=== PATIENT | male | born 1990 | race Two or more races ===

== ENCOUNTER 2016-09-06 19:49 | Emergency (ER) | payer SELFPAY ==
[~2016-09-06] VITALS: Ht 185.4 cm; Wt 74.0 kg
[2016-09-06] MEDS ORDERED: ONDANSETRON 2MG/ML, 2ML ONE (21:11)
[2016-09-06] MEDS ORDERED: HYDROmorphone 1 MG/ML, 1ML ONE (21:11)
[2016-09-06 21:16] VITALS: BP 144/94
[2016-09-06 21:28] LABS: HEMOGLOBIN 13.1 g/dL (13.7-18.0)
[2016-09-06] MEDS ORDERED: SODIUM CHLORIDE FLUSH 10ML SYR IVF ONE (21:30)
[2016-09-06] MEDS ORDERED: HYDROmorphone 1 MG/ML, 1ML IVPush PRN (21:30)
[2016-09-06] MEDS ORDERED: ONDANSETRON 2MG/ML, 2ML IVPush ONE (21:30)
[2016-09-06 21:35] LABS: ASPARTATE AMINO TRANSFERASE 15 U/L (15-37); BLOOD UREA NITROGEN 19 mg/dL (7-18)
== END 2016-09-06 22:03 | disposition left against medical advice (07) ==
LOC: ED 21:57
DX: S20.211A Contusion of right front wall of thorax, initial encounter (principal); F17.210 Nicotine dependence, cigarettes, uncomplicated; Y08.89XA Assault by other specified means, initial encounter; Y93.89 Activity, other specified; Y92.410 Unspecified street and highway as the place of occurrence of the external cause; Y99.9 Unspecified external cause status
CPT/HCPCS: 36415; 71101; 80053; 85025; 96374; 96375; 99285; J1170; J2405